=== PATIENT | female | born 1950 | race Caucasian/White ===

== ENCOUNTER 2018-02-15 16:04 | Emergency (ER) | payer MEDICARE, OTHER ==
[2018-02-15] MEDS: KETOROLAC TROMETHAMINE 60 MG/2 ML VIAL IM ONE (16:25)
[2018-02-15] MEDS: BUTORPHANOL TARTRATE 2 MG/ML VIAL IM ONE (17:47)
--- NOTE | 2018-02-15 17:55 | ED Physician Documentation ---
General Adult - HISTORIAN Historian: patient, paramedics - HPI Stated Complaint: LBP/Rt knee pain Chief Complaint: General Adult Further Comments: yes (67 year old female patient brought in by [facility] with complaints of back pain and right knee pain. Patient reports her right knee has been "out" for the past 2 weeks. State she fell 2 weeks ago and her knee is frequently "popping out". Patient c/o low back pain related to limping on right knee.) - ROS CONST: recent illness EYES/ENT: none CVS/RESP: none GI/: none MS/SKIN/LYMPH: joint pain, leg swelling, back pain NEURO/PSYCH: difficulty walking (related to right knee pain). denies: headache, fainting, dizziness - PAST HX Past History: hypertension Other History: other (chronic knee pain, chronic back pain) Surgeries/Procedures: other (right knee replacement) Allergies/Adverse Reactions: Allergies Allergy/AdvReac Type Severity Reaction Status Date / Time Sulfa (Sulfonamide Allergy Verified 02/15/18 16:26 Antibiotics) Home Medications: Ambulatory Orders Medication Instructions Recorded Levothyroxine Sodium [Synthroid] 200 mcg PO D 02/15/18 - SOCIAL HX Smoking History: cigarettes - FAMILY HX Family History: No - VITAL SIGNS Vital Signs: Vital Signs Temp Pulse Resp BP Pulse Ox 97.5 F L 62 18 183/83 98 02/15/18 16:05 02/15/18 16:05 02/15/18 16:05 02/15/18 16:05 02/15/18 16:05 - REVIEWED ASSESSMENTS Nursing Assessment Reviewed: Yes Vitals Reviewed: Yes Progress - Progress Progress: Patient reported only taking levothyroxine to RN. Patient requesting prescription for percocet. States she uses [address] Patient reports Dr Garcia as PCP. Discussed BP - patient states she takes BP medication in the morning, unsure of name. 1729 Patient states injection "helped, but pain is still there". Will give additional pain injection. Instructed patient to make appointment with Dr Garcia regarding pain management. Patient states multiple time during visit "knee is popping out of place, it has been out for 2 weeks". Patient is able to walk on left leg. ED Results Lab/Radiology - Orders Orders: ED Orders Category Date Time Status KNEE 1 OR 2 VIEWS [RAD] Stat Exams 02/15/18 Taken Butorphanol Tartrate [Stadol] Med 02/15/18 17:35 Discontinued 2 mg IM NOW ONE Ketorolac Tromethamine [Toradol] Med 02/15/18 16:15 Discontinued 60 mg IM NOW ONE General Adult Physical Exam - PHYSICAL EXAM GENERAL APPEARANCE: mild distress EENT: eye inspection normal, LYN RESPIRATORY: no resp distress, chest non-tender, breath sounds normal CVS: reg rate & rhythm, heart sounds normal, equal pulses, no murmur, no gallop, PMI nml, no JVD, no friction rub, 24 ABDOMEN: soft, no organomegaly, normal bowel sounds, no abdominal bruit, no distension, other (morbid obesity) BACK: normal inspection, no CVA tenderness SKIN: normal color, warm/dry, NR, INT, PAL, DR EXTREMITIES: non-tender, normal range of motion, no evidence of injury, no edema, other (right knee pain with palpation; no edema or erythema note; will not allow complete assessment due to pain) NEURO: oriented X3, motor nml, sensation nml, mood/affect nml, cognition normal Discharge Clincal Impression: Chronic pain of right knee Referrals: Yassine Caputo [Primary Care Provider] - 2 Days Additional Instructions: Call Dr Garcia in the morning for a follow up appointment regarding management of your knee pain. Keep a list of your daily medications with you. Condition: Stable Disposition: 01 HOME, SELF-CARE Decision to Admit: NO Decision Time: 18:02
[2018-02-15 18:30] VITALS: BP 186/51
--- NOTE | 2018-02-15 18:44 | Diagnostic Imaging Report ---
EDUARDO CHOPRA (FERRYBOAT OPERATOR HELPER) - ER [facility] [address] [facility].[address] [address] Report Submission Date: Feb 15, 2018 5:24:58 PM CDT Patient Study Name: RADHA SPENCER Date: Feb 15, 2018 4:40:47 PM CDT Modality Type: DX Gender: F Description: LOWER EXTREMITY : 54 Institution: [facility] Physician: EDUARDO CHOPRA (MELVA) - ER Right knee, AP and lateral. HISTORY Knee pain. FINDINGS The patient is status post right knee arthroplasty. The prosthesis appears in good position. There is no fracture, dislocation or abnormal bone destruction. IMPRESSION Right knee arthroplasty. Electronically signed on Feb 15, 2018 5:24:58 PM CDT by: Antonio AVENDANO
== END 2018-02-15 18:14 | disposition home or self-care (01) ==
LOC: ED 16:04
DX: M25.561 Pain in right knee (principal); G89.29 Other chronic pain
CPT/HCPCS: 73560; J0595; J1885; 96372; 99284

== ENCOUNTER 2018-05-21 14:14 | Emergency (ER) | payer MEDICARE ==
[2018-05-21] MEDS ORDERED: 0.9 % SODIUM CHLORIDE 1,000 ML IV ONE ×2 (14:38→15:11)
--- NOTE | 2018-05-21 14:49 | ED Physician Documentation ---
General Adult - HISTORIAN Historian: patient - HPI Stated Complaint: found down Chief Complaint: General Adult Additional Information: Patient presents to ED via [facility] after being found down at home today. Patient states she fell 3 days (Tuesday) ago and was unable to get up. Her neighbor was shoveling snow when he heard her crying for help today (Tuesday). She presented to ED with urine and feces covered clothes. Patient reports frequent fall over the past 3-4 months. She lives alone. Onset: days ago (3) Timing: still present Severity: severe - ROS CONST: denies: fever, recent illness CVS/RESP: denies: chest pain, shortness of breath GI/: denies: abdominal pain, vomiting, nausea MS/SKIN/LYMPH: none NEURO/PSYCH: denies: headache - PAST HX Past History: hypertension Other History: diabetes Type 2 Allergies/Adverse Reactions: Allergies Allergy/AdvReac Type Severity Reaction Status Date / Time Sulfa (Sulfonamide Allergy Verified 05/21/18 16:29 Antibiotics) Home Medications: Ambulatory Orders Medication Instructions Recorded Levothyroxine Sodium [Synthroid] 200 mcg PO D 02/15/18 Chlorpropamide [Diabinese] 05/21/18 - SOCIAL HX Smoking History: non-smoker Alcohol Use: none Drug Use: none - FAMILY HX Family History: No - VITAL SIGNS Vital Signs: Vital Signs Temp Pulse Resp BP Pulse Ox 186/51 02/15/18 18:23 - REVIEWED ASSESSMENTS Nursing Assessment Reviewed: Yes Vitals Reviewed: Yes Progress - Progress Progress: 1630 Discussed with patient lab results and need to transfer to [place]. She chooses [facility]. 1645 discussed with washhouse worker at [facility]. Will contact hospitalist for admission 1715 Discussed with washhouse worker at [facility], Dr. Jorgensen will accept transfer. 1999 Patient is resting comfortably. No complaints at this time. - EKG/XRAY/CT Comments: Sinus tachycardia 106 bpm ED Results Lab/Radiology - Radiology Radiology Impressions: Portable view of the chest Clinical history: Fall Findings: The heart size is normal. The pulmonary vasculature is normal. No pleural effusion, pneumothorax or alveolar consolidation. Impression: Negative Electronically signed on May 21, 2018 3:42:08 PM NUTRITION TECH by: Rich Lama CT brain noncontrast CLINICAL HISTORY: FOUND DOWN AFTER 5 DAYS. ALTERED MENTAL STATUS. (Hx) / ITS.REASON found down (DICOM Hx) / ITS.REASON found down (Pt comments) TECHNIQUE: 5 mm contiguous axial images of the brain, noncontrast. FINDINGS: Motion artifact limits this exam. There is no acute intracranial hemorrhage, midline shift or mass effect. No hydrocephalus. Calvarium is intact. IMPRESSION: No acute intracranial process. Motion artifact Electronically signed on May 21, 2018 4:34:23 PM NUTRITION TECH by: Rich Lama - Orders Orders: ED Orders Category Date Time Status Place IV Lock 1T Care 05/21/18 14:36 Active CHEST 1VIEW [RAD] Stat Exams 05/21/18 Ordered BLOOD CULTURE Stat Lab 05/21/18 Ordered BLOOD CULTURE Stat Lab 05/21/18 14:38 Ordered CBC/PLATELET/DIFF Routine Lab 05/21/18 Ordered CMP Routine Lab 05/21/18 Ordered CREATINE KINASE Routine Lab 05/21/18 Ordered NT-proBNP Stat Lab 05/21/18 Ordered TROPONIN I (cTnI) Stat Lab 05/21/18 Ordered 0.9 % Sodium Chloride [Normal Saline] 1,000 ml Med 05/21/18 14:38 Active IV Q1H EKG WITH COMPARISON Stat Ther 05/21/18 Ordered General Adult Physical Exam - PHYSICAL EXAM GENERAL APPEARANCE: no distress EENT: LYN NECK: supple. No: lymphadenopathy RESPIRATORY: no resp distress, other (diminished breath sounds bilaterally) CVS: reg rate & rhythm, heart sounds normal ABDOMEN: soft, normal bowel sounds BACK: normal inspection SKIN: other (Bilateral heel ulcers. Ulcer to right great toe/second toe. Ulcer to right ankle. Ulcer to right lateral foot. ) NEURO: oriented X3, sensation nml, mood/affect nml Discharge Clincal Impression: Elevated troponin, Hypernatremia, Decubitus ulcer of both feet Referrals: Yassine Caputo [Primary Care Provider] - 2 Days Condition: Fair Decision to Admit: [id number] Date of Decison to Admit: 05/21/18 Decision Time: 17:00
[2018-05-21] MEDS ORDERED: 0.45% SODIUM CHLORIDE 1,000 ML IV ONE (15:43)
[2018-05-21] MEDS ORDERED: VANCOMYCIN HCL 1.25 GM in 0.9 % SODIUM CHLORIDE 500 ML IV ONE (15:51)
[2018-05-21] MEDS ORDERED: PIPERACILLIN SODIUM/TAZOBACTAM 3.375 GM VIAL IV ONE (15:52)
--- NOTE | 2018-05-21 16:19 | Diagnostic Imaging Report ---
LIBORIO JAIN [facility] [address] [facility] [address] [place] [address]. [address] Report Submission Date: May 21, 2018 3:42:08 PM INTERVIEWING CLERK Patient Study Name: RADHA SPENCER Date: May 21, 2018 3:11:40 PM INTERVIEWING CLERK Modality Type: DX Gender: F Description: CHEST : 54 Institution: [facility] Physician: LIBORIO JAIN Portable view of the chest Clinical history: Fall Findings: The heart size is normal. The pulmonary vasculature is normal. No pleural effusion, pneumothorax or alveolar consolidation. Impression: Negative Electronically signed on May 21, 2018 3:42:08 PM INTERVIEWING CLERK by: Rich AVENDANO
[2018-05-21] MEDS ORDERED: 0.9 % SODIUM CHLORIDE 100 ML IV ONE (16:36)
--- NOTE | 2018-05-21 16:38 | Diagnostic Imaging Report ---
LIBORIO JAIN [facility] [address] [facility] [address] [place], [place]. [address] Report Submission Date: May 21, 2018 4:34:23 PM SLURRY PLANT OPERATOR Patient Study Name: RADHA SPENCER Date: May 21, 2018 4:05:32 PM SLURRY PLANT OPERATOR Modality Type: CT Gender: F Description: CT BRAIN W/O CONTRAST : 54 Institution: [facility] Physician: LIBORIO JAIN CT brain noncontrast CLINICAL HISTORY: FOUND DOWN AFTER 5 DAYS. ALTERED MENTAL STATUS. (Hx) / ITS.REASON found down (DICOM Hx) / ITS.REASON found down (Pt comments) TECHNIQUE: 5 mm contiguous axial images of the brain, noncontrast. FINDINGS: Motion artifact limits this exam. There is no acute intracranial hemorrhage, midline shift or mass effect. No hydrocephalus. Calvarium is intact. IMPRESSION: No acute intracranial process. Motion artifact Electronically signed on May 21, 2018 4:34:23 PM SLURRY PLANT OPERATOR by: Rich AVENDANO
[2018-05-21] MEDS ORDERED: 0.45% SODIUM CHLORIDE 1,000 ML IV SCH (17:00)
[2018-05-21] MEDS ORDERED: VANCOMYCIN HCL 1 GM VIAL IV ONE (17:56)
[2018-05-21] MEDS ORDERED: 0.9 % SODIUM CHLORIDE 250 ML IV ONE (17:57)
[2018-05-21 22:10] VITALS: BP 135/60
[2018-05-22 09:28] LABS: eGFR (Non-African) > 60
[2018-05-22 09:29] LABS: BASOPHILS % 0.8 (0.0-1.5); EOSINOPHILS % 1.2 % (0.0-6.8); MEAN CORPUSCULAR HEMOGLOBIN 30.2 pg (28.0-34.0); MONOCYTES % 5.7 % (0.0-11.0); NEUTROPHILS # 18.2 # k/uL (1.4-7.7)
== END 2018-05-21 21:15 | disposition short-term general hospital (02) ==
LOC: ED 14:14
DX: R79.89 Other specified abnormal findings of blood chemistry (principal); E87.0 Hyperosmolality and hypernatremia; L89.629 Pressure ulcer of left heel, unspecified stage; L89.619 Pressure ulcer of right heel, unspecified stage; E11.9 Type 2 diabetes mellitus without complications; B96.4 Proteus (mirabilis) (morganii) as the cause of diseases classified elsewhere
CPT/HCPCS: 36415; 70450; 71045; 80053; 82550; 83880; 84484; 85025; 87040; 87186; 93005; 96365; 96375; 99285; J2543; J3370; J7030; J7060; S1016

== ENCOUNTER 2018-08-01 14:02 | Outpatient (CLI) | payer MEDICARE ==
[2018-08-01 15:08] LABS: BASOPHILS % 0.6 (0.0-1.5); EOSINOPHILS % 3.5 % (0.0-6.8); MEAN CORPUSCULAR HEMOGLOBIN 28.4 pg (28.0-34.0); MONOCYTES % 4.1 % (0.0-11.0)
== END 2018-08-01 14:03 ==
LOC: LAB 14:02
PROVIDERS: ATTEND Family Medicine
DX: D64.9 Anemia, unspecified (principal)
CPT/HCPCS: 36415; 85025

== ENCOUNTER 2018-12-12 06:45 | Outpatient (CLI) | payer MEDICARE ==
[2018-12-12 09:08] LABS: eGFR (Non-African) > 60
[2018-12-12 09:09] LABS: HDL 30 mg/dL (>40)
--- NOTE | 2018-12-12 14:34 | Diagnostic Imaging Report ---
MATTHEW CARLIN [facility] [address] [facility] [address] [address] Report Submission Date: Dec 12, 2018 2:22:46 PM CDT Patient Study Name: RADHA SPENCER Date: Dec 12, 2018 12:30:58 PM CDT Modality Type: DX Gender: F Description: BILAT HANDS 3 VIEW : 54 Institution: [facility] Physician: MATTHEW CARLIN Examination: Plain film hands History: RHEUMATOID ARTHRITIS Comparison exams: None available Findings: 3 views of the right and left hands demonstrates osteopenia. Articular degenerative changes: most pronounced involving the 1st carpal metacarpal articulation. No displaced fracture lucency. No gross soft tissue abnormality. Impression: Osteopenia and advanced arthritic changes. Electronically signed on Dec 12, 2018 2:22:46 PM CDT by: Prasanna AVENDANO
== END 2018-12-12 06:47 ==
LOC: LAB 06:45
PROVIDERS: ATTEND Family Medicine
DX: I10 Essential (primary) hypertension (principal); E55.9 Vitamin D deficiency, unspecified; D51.9 Vitamin B12 deficiency anemia, unspecified
CPT/HCPCS: 80053; 80061; 82043; 83036; 85651; 86141; 86431